=== PATIENT | female | born 1990 | race Hispanic/Latino ===

== ENCOUNTER 2019-01-01 20:57 | Emergency (ER) | payer MEDICAID ==
--- NOTE | 2019-01-01 21:37 | ER ---
Nurse's Notes [facility] Name: Binta Messina Age: 28 yrs Sex: Female : 1990 Arrival Date: 01/01/2019 Time: 21:01 Bed 19 Private MD: Diagnosis: Unspecified otitis externa, right ear Presentation: 01/01 21:05 Presenting complaint: Patient states: Right ear pain and hearing loss since a week now. cc3 Transition of care: patient was not received from another setting of care. Onset of symptoms was December 25, 2018. Risk Assessment: Do you want to hurt yourself or someone else? Patient reports no desire to harm self or others. Initial Sepsis Screen: Does the patient meet any 2 criteria? HR > 90 bpm. Does the patient have a suspected source of infection? No. Patient's initial sepsis screen is negative. Care prior to arrival: None. 21:05 Method Of Arrival: Ambulatory cc3 21:05 Acuity: STEVE 4 cc3 Triage Assessment: 21:05 General: Appears in no apparent distress. uncomfortable, Behavior is calm, cooperative, cc3 appropriate for age. Pain: Complains of pain in right ear Pain currently is 9 out of 10 on a pain scale. Quality of pain is described as aching. EENT: Reports pain in right ear. Neuro: Level of Consciousness is awake, alert, obeys commands, Oriented to person, place, time, situation, Appropriate for age. Cardiovascular: Denies chest pain, Patient's skin is warm and dry. Respiratory: Airway is patent Respiratory effort is even, unlabored, Respiratory pattern is regular, symmetrical. GI: Abdomen is round 37 weeks as per patient. : No signs and/or symptoms were reported regarding the genitourinary system. Derm: No signs and/or symptoms reported regarding the dermatologic system. Musculoskeletal: Circulation, motion, and sensation intact. Range of motion: intact in all extremities. 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 - Social history:: Smoking status: Patient/guardian denies using tobacco, never smoked. - Ebola Screening: : No symptoms or risks identified at this time. Screenin:05 Abuse screen: Denies threats or abuse. Denies injuries from another. Nutritional cc3 screening: No deficits noted. Tuberculosis screening: No symptoms or risk factors identified. Fall Risk Ambulatory Aid- None/Bed Rest/Nurse Assist (0 pts). Gait- Normal/Bed Rest/Wheelchair (0 pts) Mental Status- Oriented to own ability (0 pts). Assessment: 21:05 General: see triage assessment. cc3 21:36 Reassessment: Patient appears in no apparent distress at this time. Patient and/or cc3 family updated on plan of care and expected duration. Pain level reassessed. Patient is alert, oriented x 3, equal unlabored respirations, skin warm/dry/pink. Not yet for discharge, still to be ordered for pain medicine. 22:30 Reassessment: Patient appears in no apparent distress at this time. Patient and/or cc3 family updated on plan of care and expected duration. Pain level reassessed. Patient is alert, oriented x 3, equal unlabored respirations, skin warm/dry/pink. ELISABETH Hernandez discharged the patient home with prescription given. No IV cannula in situ. Patient left ER vitally stable and ambulatory. Patient denies pain at this time. Patient states feeling better. Patient states symptoms have improved. Vital Signs: 21:05 BP 115 / 71; Pulse 102; Resp 19 S; Temp 99(O); Pulse Ox 100% on R/A; Weight 74.39 kg cc3 (R); Height 5 ft. 0 in. (152.40 cm) (R); Pain 9/10; 22:20 BP 113 / 69; Pulse 99; Resp 17 S; Pulse Ox 100% on R/A; cc3 21:05 Body Mass Index 32.03 (74.39 kg, 152.40 cm) cc3 ED Course: 21:01 Patient arrived in ED. es 21:04 Meghana Villalpando is Primary Nurse. cc3 21:05 Arm band placed on right wrist. Patient notified of wait time. cc3 21:05 Patient has correct armband on for positive identification. Bed in low position. Call cc3 light in reach. Side rails up X 1. Pulse ox on. NIBP on. 21:10 Lokesh Hernandez NP is PHCP. pm1 21:10 Twin Dietz MD is Attending Physician. pm1 21:18 Triage completed. cc3 22:30 No provider procedures requiring assistance completed. Patient did not have IV access cc3 during this emergency room visit. Administered Medications: 22:10 Drug: [place] 5 mg-325 mg 1 tabs Route: PO; cc3 22:20 Follow up: Response: No adverse reaction; Pain is decreased cc3 Outcome: 21:36 Discharge ordered by . pm1 22:30 Patient left the ED. cc3 22:30 Discharged to home ambulatory. cc3 22:30 Condition: stable 22:30 Discharge instructions given to patient, Instructed on discharge instructions, follow up and referral plans. medication usage, Demonstrated understanding of instructions, follow-up care, medications, Prescriptions given X 1. Signatures: Ximena Buckley Patrick, NP ANCILLARY SERVICES MANAGER pm1 Meghana Villalpando cc3
--- NOTE | 2019-01-01 21:37 | EDPHYS ---
Physician Documentation [facility] Name: Binta Messina Age: 28 yrs Sex: Female : 1990 Arrival Date: 01/01/2019 Time: 21:01 Bed 19 Private MD: ED Physician Twin Dietz HPI: 01/01 21:35 This 28 yrs old Female presents to ER via Ambulatory with complaints of Right pm1 Ear Pain, HEARING LOSS. 21:35 The patient presents with pain, that is acute. The complaints affect the right ear. pm1 Onset: The symptoms/episode began/occurred 1 week(s) ago. Modifying factors: The symptoms are alleviated by covering ear, the symptoms are aggravated by air. Associated signs and symptoms: Pertinent negatives: cough, fever, vomiting. Severity of symptoms: in the emergency department the symptoms are worse. The patient has not experienced similar symptoms in the past. The patient has not recently seen a physician, has an appointment scheduled, next week with OB. decreased hearing to right ear with pain. 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 - Social history:: Smoking status: Patient/guardian denies using tobacco, never smoked. - Ebola Screening: : No symptoms or risks identified at this time. ROS: 21:35 Constitutional: Negative for fever, chills, and weight loss, Eyes: Negative for injury, pm1 pain, redness, and discharge. 21:35 Neck: Negative for injury, pain, and swelling, Cardiovascular: Negative for chest pain, palpitations, and edema, Respiratory: Negative for shortness of breath, cough, wheezing, and pleuritic chest pain, Abdomen/GI: Negative for abdominal pain, nausea, vomiting, diarrhea, and constipation, Back: Negative for injury and pain, : Negative for injury, bleeding, discharge, and swelling, MS/Extremity: Negative for injury and deformity, Skin: Negative for injury, rash, and discoloration, Neuro: Negative for headache, weakness, numbness, tingling, and seizure. 21:35 ENT: Positive for ear pain, decreased hearing, Negative for drainage from ear(s). Exam: 21:35 Constitutional: This is a well developed, well nourished patient who is awake, alert, pm1 and in no acute distress. Head/Face: Normocephalic, atraumatic. Eyes: Pupils equal round and reactive to light, extra-ocular motions intact. Lids and lashes normal. Conjunctiva and sclera are non-icteric and not injected. Cornea within normal limits. Periorbital areas with no swelling, redness, or edema. 21:35 Neck: Trachea midline, no thyromegaly or masses palpated, and no cervical lymphadenopathy. Supple, full range of motion without nuchal rigidity, or vertebral point tenderness. No Meningismus. Chest/axilla: Normal chest wall appearance and motion. Nontender with no deformity. No lesions are appreciated. Cardiovascular: Regular rate and rhythm with a normal S1 and S2. No gallops, murmurs, or rubs. Normal PMI, no JVD. No pulse deficits. Respiratory: Lungs have equal breath sounds bilaterally, clear to auscultation and percussion. No rales, rhonchi or wheezes noted. No increased work of breathing, no retractions or nasal flaring. 21:35 Back: No spinal tenderness. No costovertebral tenderness. Full range of motion. Skin: Warm, dry with normal turgor. Normal color with no rashes, no lesions, and no evidence of cellulitis. MS/ Extremity: Pulses equal, no cyanosis. Neurovascular intact. Full, normal range of motion. 21:35 ENT: External ear(s): are unremarkable, Ear canal(s): swelling, that is moderate, of the right canal, TM's: unable to visualize right TM due to swelling in canal, Nose: is normal, Mouth: is normal, Posterior pharynx: is normal. 21:35 Abdomen/GI: Inspection: gravid appearance, is noted. 21:35 Neuro: Orientation: is normal, Motor: is normal, moves all fours, Gait: is steady, at a normal pace, without difficulty. Vital Signs: 21:05 BP 115 / 71; Pulse 102; Resp 19 S; Temp 99(O); Pulse Ox 100% on R/A; Weight 74.39 kg cc3 (R); Height 5 ft. 0 in. (152.40 cm) (R); Pain 9/10; 22:20 BP 113 / 69; Pulse 99; Resp 17 S; Pulse Ox 100% on R/A; cc3 21:05 Body Mass Index 32.03 (74.39 kg, 152.40 cm) cc3 MDM: 21:27 Patient medically screened. pm1 21:35 Data reviewed: vital signs. Data interpreted: Pulse oximetry: on room air is 100 %. pm1 Interpretation: normal. Counseling: I had a detailed discussion with the patient and/or guardian regarding: the historical points, exam findings, and any diagnostic results supporting the discharge/admit diagnosis, the need for outpatient follow up, to return to the emergency department if symptoms worsen or persist or if there are any questions or concerns that arise at home. 22:10 ED course: Cortisporin not present in the ER. Ear wick placed in right ear canal and pm1 patient instructed on use of otic suspension. Administered Medications: 22:10 Drug: [place] 5 mg-325 mg 1 tabs Route: PO; cc3 22:20 Follow up: Response: No adverse reaction; Pain is decreased cc3 Disposition: 01/02 15:13 Co-signature as Attending Physician, Twin Dietz MD Available for consultation at ps1 all times . Disposition: 01/01/19 21:36 Discharged to Home. Impression: Unspecified otitis externa, right ear. - Condition is Stable. - Discharge Instructions: Ear Drops, Adult, Otitis Externa. - Prescriptions for Cortisporin 3.5- 10,000-1 mg/mL-unit/mL-% Otic solution - instill 4 drop by OTIC route 4 times per day for 10 days; 10 milliliter. - Medication Reconciliation Form, Thank You Letter, Antibiotic Education, Prescription Opioid Use form. - Follow up: Emergency Department; When: As needed; Reason: Worsening of condition. Follow up: Private Physician; When: 2 - 3 days; Reason: Recheck today's complaints, Continuance of care, Re-evaluation by your physician. - Problem is new. - Symptoms have improved. Signatures: Lokesh Hernandez NP PUBLIC HEALTH CLINICAL NURSE SPECIALIST pm1 Twin Dietz MD MD ps1 Meghana Villalpando cc3 Corrections: (The following items were deleted from the chart) 01/01 22:30 21:36 01/01/2019 21:36 Discharged to Home. Impression: Unspecified otitis externa, cc3 right ear. Condition is Stable. Forms are Medication Reconciliation Form, Thank You Letter, Antibiotic Education, Prescription Opioid Use. Follow up: Emergency Department; When: As needed; Reason: Worsening of condition. Follow up: Private Physician; When: 2 - 3 days; Reason: Recheck today's complaints, Continuance of care, Re-evaluation by your physician. Problem is new. Symptoms have improved. pm1
[2019-01-01] MEDS ORDERED: HYDROCODONE/APAP 5/325 MG TAB ONE (22:23)
[2019-01-01 22:41] VITALS: BP 115/71; TEMP 99; O2SAT 100
== END 2019-01-01 22:30 | disposition home or self-care (01) ==
LOC: ER 20:57
DX: H60.91 Unspecified otitis externa, right ear (principal); O99.343 Other mental disorders complicating pregnancy, third trimester; F32.9 Major depressive disorder, single episode, unspecified; Z3A.37 37 weeks gestation of pregnancy
CPT/HCPCS: 99283

== ENCOUNTER 2019-03-05 21:22 | Emergency (ER) | payer MEDICAID ==
--- OUTSIDE RECORDS SUMMARY | 2019-03-05 21:35 | XMS REPORT ---
:1990 [facility] [address] [place] [address] Care Team Providers Name Role Phone Unavailable Unavailable Unavailable Problems This patient has no known problems. Allergies, Adverse Reactions, Alerts This patient has no known allergies or adverse reactions. Medications This patient has no known medications.
--- NOTE | 2019-03-05 21:51 | ER ---
Nurse's Notes [facility] Name: Binta Messina Age: 28 yrs Sex: Female : 1990 Arrival Date: 03/05/2019 Time: 21:25 Bed 14 Private MD: Diagnosis: Encounter for screening, unspecified Presentation: 03/05 21:32 Presenting complaint: Patient states: she missed her doctor's appt to have her lilly bb removed after her 9 days ago. Transition of care: patient was not received from another setting of care. Onset of symptoms was March 05, 2019. Risk Assessment: Do you want to hurt yourself or someone else? Patient reports no desire to harm self or others. Initial Sepsis Screen: Does the patient meet any 2 criteria? No. Patient's initial sepsis screen is negative. Does the patient have a suspected source of infection? No. Patient's initial sepsis screen is negative. Care prior to arrival: None. 21:32 Method Of Arrival: Ambulatory bb 21:32 Acuity: STEVE [address]: 21:34 LMP N/A - Recent bb Historical: - Allergies: 21:34 No Known Allergies; bb - Home Meds: 21:34 Ibuprofen Oral [Active]; Dulcolax Oral [Active]; Hydrocodone-Acetaminophen Oral bb [Active]; Amoxicillin Oral [Active]; - PMHx: 21:34 Anemia; Bipolar disorder; Depression; bb - PSHx: 21:34 ; bb - Immunization history:: Adult Immunizations up to date. - Social history:: Smoking status: Patient/guardian denies using tobacco. - Ebola Screening: : No symptoms or risks identified at this time. Screenin:52 Abuse screen: Denies threats or abuse. Nutritional screening: No deficits noted. jb4 Tuberculosis screening: No symptoms or risk factors identified. Fall Risk None identified. Assessment: 21:52 General: Appears in no apparent distress. comfortable, Behavior is calm, cooperative, jb4 appropriate for age. Pain: Complains of pain in suprapubic area. Neuro: Level of Consciousness is awake, alert, obeys commands, Oriented to person, place, time, situation. Cardiovascular: Patient's skin is warm and dry. Respiratory: Airway is patent Respiratory effort is even, unlabored, Respiratory pattern is regular, symmetrical. GI: No signs and/or symptoms were reported involving the gastrointestinal system. : No signs and/or symptoms were reported regarding the genitourinary system. EENT: No signs and/or symptoms were reported regarding the EENT system. Derm: Skin Lilly noted to the suprapubic area due to . Skin is pink, warm \T\ dry. Musculoskeletal: Circulation, motion, and sensation intact. 22:15 Reassessment: Pt left ED prior to receiving d/c instructions. jb4 Vital Signs: 21:34 BP 133 / 76; Pulse 88; Resp 16 S; Temp 98.1(O); Pulse Ox 98% on R/A; Weight 72.57 kg bb (R); Height 5 ft. 0 in. (152.40 cm) (R); Pain 4/10; 21:34 Body Mass Index 31.25 (72.57 kg, 152.40 cm) ED Course: 21:25 Patient arrived in ED. es 21:25 Mayra Murillo FNP-C is [facility]. snw 21:25 Paty Fregoso MD is Attending Physician. snw 21:33 Triage completed. bb 21:34 Arm band placed on Patient placed in an exam room, on a stretcher. bb 21:52 Gray Hartley, RN is Primary Nurse. jb4 21:52 Patient has correct armband on for positive identification. Bed in low position. Call jb4 light in reach. Side rails up X 1. culinary arts instructor on. Pulse ox on. NIBP on. 22:15 No provider procedures requiring assistance completed. Patient did not have IV access jb4 during this emergency room visit. Administered Medications: No medications were administered Outcome: 21:50 Discharge ordered by . snw 22:19 Patient left the ED. jb4 Signatures: Mayra Murillo FNP-C SURGICAL NURSE-Ximena Mena Brenda RN RN bb Gray Hartley, RN RN jb4
--- NOTE | 2019-03-05 21:51 | EDPHYS ---
Physician Documentation [facility] Name: Binta Messina Age: 28 yrs Sex: Female : 1990 Arrival Date: 03/05/2019 Time: 21:25 Bed 14 Private MD: ED Physician Paty Fregoso HPI: 03/05 21:47 This 28 yrs old Female presents to ER via Ambulatory with complaints of Staple snw Removal. 21:47 The patient has lilly on the suprapubic area. Previous treatment: The patient was snw initially treated 9 days ago at [facility]. Sutures/lilly progress: The patient has no c/o's. The wound is well-healing with no redness, swelling, discharge, or dehiscence reported. The patient has experienced similar episodes in the past. Pt seen for and delivery at [facility] second to Pre-eclampsia and 4th . Pt missed appt for staple removal today. Incision healthy. Encouraged to call Friday for another appt. Denies HUITRON, abd pain, visual changes. 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 - Social history:: Smoking status: Patient/guardian denies using tobacco. - Ebola Screening: : No symptoms or risks identified at this time. ROS: 21:46 Constitutional: Negative for fever, chills, and weight loss, Eyes: Negative for injury, snw pain, redness, and discharge, ENT: Negative for injury, pain, and discharge, Neck: Negative for injury, pain, and swelling, Cardiovascular: Negative for chest pain, palpitations, and edema, Respiratory: Negative for shortness of breath, cough, wheezing, and pleuritic chest pain, Back: Negative for injury and pain, : Negative for injury, bleeding, discharge, and swelling, MS/Extremity: Negative for injury and deformity, Skin: Negative for injury, rash, and discoloration, Neuro: Negative for headache, weakness, numbness, tingling, and seizure. 21:46 Abdomen/GI: Positive for request lilly be removed.. Exam: 21:45 Constitutional: This is a well developed, well nourished patient who is awake, alert, snw and in no acute distress. Head/Face: Normocephalic, atraumatic. Eyes: Pupils equal round and reactive to light, extra-ocular motions intact. Lids and lashes normal. Conjunctiva and sclera are non-icteric and not injected. Cornea within normal limits. Periorbital areas with no swelling, redness, or edema. ENT: Nares patent. No nasal discharge, no septal abnormalities noted. Tympanic membranes are normal and external auditory canals are clear. Oropharynx with no redness, swelling, or masses, exudates, or evidence of obstruction, uvula midline. Mucous membranes moist. Neck: Trachea midline, no thyromegaly or masses palpated, and no cervical lymphadenopathy. Supple, full range of motion without nuchal rigidity, or vertebral point tenderness. No Meningismus. Chest/axilla: Normal chest wall appearance and motion. Nontender with no deformity. No lesions are appreciated. Cardiovascular: Regular rate and rhythm with a normal S1 and S2. No gallops, murmurs, or rubs. Normal PMI, no JVD. No pulse deficits. Respiratory: Lungs have equal breath sounds bilaterally, clear to auscultation and percussion. No rales, rhonchi or wheezes noted. No increased work of breathing, no retractions or nasal flaring. Back: No spinal tenderness. No costovertebral tenderness. Full range of motion. Skin: Warm, dry with normal turgor. Normal color with no rashes, no lesions, and no evidence of cellulitis. MS/ Extremity: Pulses equal, no cyanosis. Neurovascular intact. Full, normal range of motion. Neuro: Awake and alert, GCS 15, oriented to person, place, time, and situation. Cranial nerves II-XII grossly intact. Motor strength 5/5 in all extremities. Sensory grossly intact. Cerebellar exam normal. Normal gait. 21:45 Abdomen/GI: Inspection: abdomen appears normal, stapled incision looks healthy. no evidence of infection, Bowel sounds: normal. Vital Signs: 21:34 BP 133 / 76; Pulse 88; Resp 16 S; Temp 98.1(O); Pulse Ox 98% on R/A; Weight 72.57 kg bb (R); Height 5 ft. 0 in. (152.40 cm) (R); Pain 4/10; 21:34 Body Mass Index 31.25 (72.57 kg, 152.40 cm) bb MDM: 21:34 Patient medically screened. snw 21:51 Data reviewed: vital signs, nurses notes. Data interpreted: Pulse oximetry: on room air snw is 98 %. Interpretation: acceptable. Counseling: I had a detailed discussion with the patient and/or guardian regarding: the historical points, exam findings, and any diagnostic results supporting the discharge/admit diagnosis, the need for outpatient follow up, for definitive care, to return to the emergency department if symptoms worsen or persist or if there are any questions or concerns that arise at home. Special discussion: Based on the history and exam findings, there is no indication for further emergent testing or inpatient evaluation. I discussed with the patient/guardian the need to see the OB Gyne specialist for further evaluation of the symptoms. I discussed with the patient/guardian the need to see the primary care provider for further evaluation of the symptoms. Administered Medications: No medications were administered Disposition: 21:51 Encounter for surgical wound eval and staple removal. snw 03/06 03:01 Co-signature as Attending Physician, Paty Fregoso MD. ma2 Disposition: 03/05/19 21:50 Discharged to Home. Impression: Encounter for screening, unspecified. - Condition is Stable. - Discharge Instructions: Keeping Your [place] Safe and Healthy, Stitches, Lilly, or Adhesive Wound Closure, Sutured Wound Care, [id number]. - Medication Reconciliation Form, Thank You Letter, Antibiotic Education, Prescription Opioid Use form. - Follow up: Emergency Department; When: As needed. Follow up: Private Physician; When: 2 - 3 days; Reason: Recheck today's complaints, Continuance of care, Re-evaluation by your physician. Signatures: Mayra Murillo, YESSENIA-C WHEEL OF FORTUNE DEALER-Csnw Char Joya RN RN bb Gray Hartley RN RN jb4 Paty Fregoso MD MD ma2 Corrections: (The following items were deleted from the chart) 03/05 22:19 21:50 03/05/2019 21:50 Discharged to Home. Impression: Encounter for screening, jb4 unspecified. Condition is Stable. Forms are Medication Reconciliation Form, Thank You Letter, Antibiotic Education, Prescription Opioid Use. Follow up: Emergency Department; When: As needed. Follow up: Private Physician; When: 2 - 3 days; Reason: Recheck today's complaints, Continuance of care, Re-evaluation by your physician. snw
[2019-03-05 22:35] VITALS: BP 133/76; TEMP 98.1; O2SAT 98
== END 2019-03-05 22:19 | disposition home or self-care (01) ==
LOC: ER 21:22
DX: Z48.02 Encounter for removal of sutures (principal); D64.9 Anemia, unspecified; F31.9 Bipolar disorder, unspecified; F32.9 Major depressive disorder, single episode, unspecified
CPT/HCPCS: 99284

== ENCOUNTER 2024-05-11 17:30 | Emergency (ER) | payer OTHER ==
--- NOTE | 2024-05-11 18:26 | RAD REPORT ---
EXAM DESCRIPTION: Eduardo Single View05/11/2024 6:03 pm CLINICAL HISTORY: Chest pain COMPARISON: 2014 FINDINGS: The lungs appear clear of acute infiltrate. The heart is normal size IMPRESSION: No acute abnormalities displayed
[2024-05-11 18:52] LABS: Absolute Basophils 0.1 K/uL (0-0.5); Absolute Eosinophils 0.3 K/uL (0-0.5); Absolute Monocytes 0.6 K/uL (0.1-1.3); Absolute Neutrophil 6.2 K/uL (1.8-8.0); Basophils % 1.3 % (0-1.3); Eosinophils % 2.8 % (0-4.4); Hematocrit 33.7 % (36.0-45.0); Hemoglobin 10.6 g/dL (12.0-15.0); Lymphocytes % 29.8 % (15.3-44.8); MCH 25.1 pg (27.0-35.0); MCHC 31.3 g/dL (32.0-36.0); MCV 80.2 fL (80-100); Monocytes % 5.8 % (3.3-12.3); Neutrophils % 60.3 % (41.7-73.7); Platelets 340 thou/uL (152-406); RBC Red Blood Cell Count 4.21 M/uL (3.86-4.86); Red Cell Distribution Width 15.6 % (12.1-15.2)
[2024-05-11 19:15] LABS: Anion Gap 7.7 mEq/L (5.0-15.0); Potassium 3.7 mEq/L (3.5-5.1); Troponin High Sensitivity 22.2 pg/mL (<58.9)
--- NOTE | 2024-05-11 21:22 | ER ---
Nurse's Notes [facility] Name: Binta Messina Age: 33 yrs Sex: Female : 1990 Arrival Date: 05/11/2024 Time: 17:30 Bed 9 Private MD: Diagnosis: Chest pain, unspecified Presentation: 05/11 17:39 Chief complaint: Patient states: heart problems since July. reports left sided iw facial and arm numbness at 0400 with chest pain. Coronavirus screen: At this time, the client does not indicate any symptoms associated with coronavirus-19. Ebola Screen: No symptoms or risks identified at this time. Initial Sepsis Screen: Does the patient meet any 2 criteria? No. Patient's initial sepsis screen is negative. Does the patient have a suspected source of infection? No. Patient's initial sepsis screen is negative. Risk Assessment: Do you want to hurt yourself or someone else? Patient reports no desire to harm self or others. Onset of symptoms was May 11, 2024. 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 - Infectious Disease History:: Denies. - Social history:: Smoking status: Patient denies any tobacco usage or history of. Screenin:10 [facility] ED Fall Risk Assessment (Adult) History of falling in the last 3 months, me1 including since admission No falls in past 3 months (0 pts) Confusion or Disorientation No (0 pts) Intoxicated or Sedated No (0 pts) Impaired Gait No (0 pts) Mobility Assist Device Used No (0 pt) Altered Elimination No (0 pt) Score/Fall Risk Level 0 - 2 = Low Risk Maintained a safe environment, Provided non-skid footwear, Hourly rounding (assess needs \T\ fall precautionary measures) done. Abuse screen: Denies threats or abuse. Nutritional screening: No deficits noted. Tuberculosis screening: No symptoms or risk factors identified. Assessment: 18:10 General: Appears uncomfortable, well groomed, well developed, well nourished, Behavior me1 is calm, cooperative, appropriate for age, Reports heart problems since July. reports left sided facial and arm numbness at 0400 with chest pain. Pain: Complains of pain in chest Pain does not radiate. Pain currently is 10 out of 10 on a pain scale. Quality of pain is described as heavy, sharp, Pain began suddenly, Is continuous. Neuro: Level of Consciousness is awake, alert, obeys commands, Oriented to person, place, time, situation, Appropriate for age. Neuro: Reports numbness in chest and left arm. Cardiovascular: Patient's skin is warm and dry. Cardiovascular: Reports chest pain. Respiratory: Airway is patent Trachea midline Respiratory effort is even, unlabored, Respiratory pattern is regular, symmetrical. GI: No signs and/or symptoms were reported involving the gastrointestinal system. : No signs and/or symptoms were reported regarding the genitourinary system. EENT: No signs and/or symptoms were reported regarding the EENT system. Derm: Skin is intact, is healthy with good turgor, Skin is pink, warm \T\ dry. Musculoskeletal: No signs and/or symptoms reported regarding the musculoskeletal system. Vital Signs: 17:39 BP 124 / 87; Pulse 91; Resp 16 S; Pulse Ox 100% on R/A; Weight 79.38 kg (R); Height 5 iw ft. 0 in. (R); Pain 10/10; 19:14 BP 114 / 70; Pulse 74; Resp 16; Pulse Ox 100% on R/A; me1 20:15 BP 116 / 81; Pulse 71; Resp 15; Pulse Ox 100% ; me1 21:15 BP 115 / 70; Pulse 72; Resp 16; Temp 98.1; Pulse Ox 100% ; me1 17:39 Body Mass Index 34.18 (79.38 kg, 152.4 cm) iw 17:39 Pain Scale: Adult iw ED Course: 17:33 Patient arrived in ED. mr 17:36 Galina Polanco FNP-C [facility]. kb 17:36 Ritesh Bello MD is Attending Physician. kb 17:44 Triage completed. iw 17:45 Arm band placed on. iw 18:04 XRAY Chest (1 view) In Process Unspecified. EDMS 18:10 Patient has correct armband on for positive identification. Bed in low position. Call me1 light in reach. Side rails up X2. Provided Education on: POC. Verbalized understanding. . Client placed on continuous cardiac and pulse oximetry monitoring. NIBP monitoring applied. conveyor monitor on. Pulse ox on. NIBP on. 18:10 No provider procedures requiring assistance completed. Patient maintains SpO2 me1 saturation greater than 95% on room air. 18:13 Linda Sahu, RN is Primary Nurse. me1 18:47 Initial lab(s) drawn, by me, sent to lab. Inserted saline lock: 22 gauge in right me1 antecubital area, using aseptic technique. 18:47 Basic Metabolic Panel Sent. me1 18:47 CBC with Diff Sent. me1 18:47 D-Dimer Sent. me1 18:47 Troponin HS Sent. me1 20:54 Troponin HS Sent. oe 21:33 IV discontinued, intact, bleeding controlled, No redness/swelling at site. Pressure me1 dressing applied. Administered Medications: No medications were administered Medication: 18:10 VIS not applicable for this client. nj1 Outcome: 21:21 Discharge ordered by . gurpreet 21:33 Discharged to home ambulatory, me1 21:33 Condition: stable 21:33 Discharge instructions given to patient, Instructed on discharge instructions, follow up and referral plans. Demonstrated understanding of instructions, follow-up care, 21:33 Patient left the ED. nj1 Signatures: Dispatcher [employer] EDGalina Orona, NAVAL ARCHITECT-C NAVAL ARCHITECT-Ckb Beckie Collier, Reg Reg mr Thi Lopez RN RN iw Messi Abel oe Linda Sahu, RN RN me1 Corrections: (The following items were deleted from the chart) 19:11 17:39 Chief complaint: Patient states: heart problems since July. reports left me1 sided facial and arm numbness at 0400 with chest pain iw
--- NOTE | 2024-05-11 21:22 | EDPHYS ---
Physician Documentation [facility] Name: Binta Messina Age: 33 yrs Sex: Female : 1990 Arrival Date: 05/11/2024 Time: 17:30 Bed 9 Private MD: ED Physician Ritesh Bello HPI: 05/11 20:41 This 33 yrs old Female presents to ER via Ambulatory with complaints of Chest kb Pain. 20:41 Pt is a 33 year old female who presents for chest pain that started at 0400 this kb morning. States she has been having intermittent chest pain since July. Reports pain is worse with palpation and when talking. Denies shortness of breath, nausea or vomiting. . 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 - Infectious Disease History:: Denies. - Social history:: Smoking status: Patient denies any tobacco usage or history of. ROS: 20:41 Constitutional: As per HPI kb Exam: 17:53 Constitutional: This is a well developed, well nourished patient who is awake, alert, kb and in no acute distress. Head/Face: Normocephalic, atraumatic. ENT: Moist Mucous membranes Cardiovascular: Regular rate Respiratory: Respirations even and unlabored. No increased work of breathing. Talking in full sentences Abdomen/GI: Soft, non-tender. No distention Skin: Warm, dry with normal turgor. Normal color. MS/ Extremity: Pulses equal, no cyanosis. Neurovascular intact. Full, normal range of motion. Neuro: Awake and alert, GCS 15, oriented to person, place, time, and situation. Moves all extremities. Normal gait. 17:53 ECG was reviewed by the Attending Physician. Vital Signs: 17:39 BP 124 / 87; Pulse 91; Resp 16 S; Pulse Ox 100% on R/A; Weight 79.38 kg (R); Height 5 iw ft. 0 in. (R); Pain 10/10; 19:14 BP 114 / 70; Pulse 74; Resp 16; Pulse Ox 100% on R/A; me1 20:15 BP 116 / 81; Pulse 71; Resp 15; Pulse Ox 100% ; me1 21:15 BP 115 / 70; Pulse 72; Resp 16; Temp 98.1; Pulse Ox 100% ; me1 17:39 Body Mass Index 34.18 (79.38 kg, 152.4 cm) iw 17:39 Pain Scale: Adult iw MDM: 17:36 Patient medically screened. kb 20:41 Data reviewed: vital signs, nurses notes. kb 20:42 Differential diagnosis: MO, abnormal ekg, anxiety. kb 21:20 Test considered but Not performed: CT: ct chest considered but ddimer normal. kb Counseling: I had a detailed discussion with the patient and/or guardian regarding the historical points, exam findings, and any diagnostic results supporting the discharge/admit diagnosis, lab results, radiology results, the need for outpatient follow up, a family practitioner, to return to the emergency department if symptoms worsen or persist or if there are any questions or concerns that arise at home. 05/11 17:45 Order name: Basic Metabolic Panel; Complete Time: 19:16 kb 05/11 17:45 Order name: CBC with Diff; Complete Time: 19:07 kb 05/11 17:45 Order name: D-Dimer; Complete Time: 19:07 kb 05/11 17:45 Order name: Troponin HS; Complete Time: 19:16 kb 05/11 20:43 Order name: Troponin HS; Complete Time: 21:20 me1 05/11 17:45 Order name: XRAY Chest (1 view); Complete Time: 18:29 kb 05/11 17:45 Order name: Cardiac monitoring; Complete Time: 19:43 kb 05/11 17:45 Order name: EKG - Nurse/Tech; Complete Time: 17:51 kb 05/11 17:45 Order name: IV Saline Lock; Complete Time: 18:47 kb 05/11 17:45 Order name: Labs collected and sent; Complete Time: 18:47 kb 05/11 17:45 Order name: O2 Per Protocol; Complete Time: 18:47 kb 05/11 17:45 Order name: O2 Sat Monitoring; Complete Time: 18:47 kb EC:53 Rate is 78 beats/min. Rhythm is regular. QRS [place] is Normal. [place] interval is normal at kb 146 msec. QRS interval is normal at 72 msec. QT interval is normal at 440 msec. Administered Medications: No medications were administered Disposition Summary: 05/11/24 21:21 Discharge Ordered Notes: Location: Home kb Condition: Stable kb Diagnosis - Chest pain, unspecified kb Followup: kb - With: Emergency Department - When: As needed - Reason: Worsening of condition Followup: kb - With: Private Physician - When: 2 - 3 days - Reason: Recheck today's complaints, Continuance of care, Re-evaluation by your physician Discharge Instructions: - Discharge Summary Sheet kb - Nonspecific Chest Pain, Adult, [id number] kb Forms: - Medication Reconciliation Form kb - Antibiotic Education kb - Prescription Opioid Use kb - Patient Portal Instructions kb - Leadership Thank You Letter kb Signatures: Dispatcher [employer] EDGalina Orona, YESSENIA-C COMMUNICATIONS EQUIPMENT INSTALLER-Thi Cassidy RN RN iw Corrections: (The following items were deleted from the chart) 20:44 20:43 Troponin High Sensitivity+[id number].LAB.BRZ ordered. EDCO EDCO
[2024-05-11 22:00] VITALS: O2SAT 100
[2024-05-11 22:05] VITALS: BP 115/70; TEMP 98.1
--- NOTE | 2024-05-13 12:57 | EKG ---
Test Date: 2024-05-11 Test Time: 17:49:38 Integrated Circuit Fabricator: CARMEN MEASUREMENT RESULTS: Intervals: Rate: 78 WI: 146 QRSD: 72 QT: 386 QTc: 440 [place]: P: 66 WI: 146 QRS: 44 T: 24 INTERPRETIVE STATEMENTS: Normal sinus rhythm Normal ECG No previous ECG available for comparison Electronically Signed On 05-13-24 12:55:24 CDT by Huber Morris
== END 2024-05-11 21:33 | disposition home or self-care (01) ==
LOC: ER 17:30
DX: R07.9 Chest pain, unspecified (principal)
CPT/HCPCS: 36415; 71045; 80048; 84484; 85025; 85379; 93005; 99284